=== PATIENT | male | born 2000 | race Caucasian/White ===

== ENCOUNTER 2019-09-19 12:24 | Emergency (ER) | payer OTHER ==
[2019-09-19 12:45] VITALS: BP 143/66
--- NOTE | 2019-09-19 13:08 | ER.PDOC ---
General Chief Complaint: Nausea,Vomiting,Diarrhea Stated Complaint: VOMIT, TRAVELED HOME TO [place] Time seen by MD: 13:08 Source: patient Exam Limitations: no limitations History of Present Illness Initial Comments 19 Y/O MALE TO ED WITH HX NAUSEA AND DIARRHEA X 2 DAYS. ABD PAIN COMES AND GOES, NO FEVER, NO EXPO TO COVID, NO ABD PAIN ON EXAM, NO OTHER COMPLAINTS, NO URI SYMPTOMS. Severity/Quality: mild Abdominal Pain Onset Location: Epigastric Associated Symptoms (diarrhea): mild, watery Prior symptoms/Treatment: Similar symptoms previous Vital Signs First Vital Signs Date Time Temp Pulse Resp B/P (MAP) Pulse Ox O2 Delivery O2 Flow Rate FiO2 09/19/19 12:45 98.9 69 18 98 09/19/19 12:45 Room Air Last Vital Signs Date Time Temp Pulse Resp B/P (MAP) Pulse Ox O2 Delivery O2 Flow Rate FiO2 09/19/19 12:45 98.9 69 18 09/19/19 12:45 98 Room Air Past Medical History Medical History: other Surgical History: appendectomy Family History Significant Family History: no pertinent family hx Social History Smoking: non-smoker Alcohol Use: occassionally Drug Use: none Reviewed Nursing Reviewed: Vital Signs, Abn. Noted, Nursing Assessment Constitutional: no symptoms reported EENTM: no symptoms reported Respiratory: no symptoms reported Cardiovascular: no symptoms reported Gastrointestinal: see HPI, diarrhea, nausea, vomiting Genitourinary: no symptoms reported Musculoskeletal: no symptoms reported Skin: no symptoms reported Psychiatric/Neurological: no symptoms reported Endocrine: no symptoms reported Hematologic/Lymphatic: no symptoms reported Physical Exam General Appearance: No Apparent Distress, WD/WN HEENT: PERRL/EOMI, Normal ENT Inspection, TMs Normal, Pharynx Normal Neck: Non-Tender, Full Range of Motion, Supple, Normal Inspection Respiratory: chest non-tender, lungs clear, normal breath sounds, no respiratory distress, no accessory muscle use Cardiovascular: Normal Peripheral Pulses, Regular Rate, Rhythm, No Edema, No Gallop, No JVD, No Murmur Gastrointestinal: Normal Bowel Sounds, Non Tender, Soft Back: Normal Inspection, No CVA Tenderness, No Vertebral Tenderness Extremities: Normal Range of Motion, Non-Tender, Normal Inspection, No Pedal Edema, No Calf Tenderness, Normal Capillary Refill, Pelvis Stable 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 Results/Orders Results/Orders Orders - ESE GUTIÉRREZ DO Cbc With Auto Diff (09/19/19 13:23) Comprehensive Metabolic Panel (09/19/19 13:23) Lipase (09/19/19 13:23) Urinalysis (09/19/19 13:23) Saline Lock (09/19/19 13:23) Ondansetron Hcl/Pf (Zofran) (09/19/19 13:30) 0.9 % Sodium Chloride (Ns 1000ml) (09/19/19 13:23) 0.9 % Sodium Chloride (Ns 1000ml) (09/19/19 13:38) Ondansetron Hcl/Pf (Zofran) (09/19/19 13:38) Vital Signs Date Time Temp Pulse Resp B/P (MAP) Pulse Ox O2 Delivery O2 Flow Rate FiO2 09/19/19 12:45 98.9 69 18 09/19/19 12:45 98.9 69 18 98 Room Air 09/19/19 12:45 98.9 69 18 98 Administered Medications Medications (Trade) Dose Ordered Sig/Juliette Route PRN Reason Start Time Stop Time Status Last Admin Dose Admin Ondansetron HCl (Zofran) 4 mg STAT PRN IV NAUSEA / VOMITING 09/19/19 13:30 10/19/19 13:29 09/19/19 13:45 4 MG Sodium Chloride 1,000 ml @ 0 mls/hr Q0M STAT IV 09/19/19 13:23 09/19/19 13:26 DC 09/19/19 13:45 1,200 MLS/HR Laboratory Tests Test 09/19/19 13:34 White Blood Count 4.5 10^3/uL (4.5-11.0) Red Blood Count 5.03 10^6/uL (4.50-5.90) Hemoglobin 15.8 g/dL (13.9-16.3) Hematocrit 45.9 % (37.0-53.0) Mean Corpuscular Volume 91.3 fL (78-100) Mean Corpuscular Hemoglobin 31.4 pg (26-34) Mean Corpuscular Hemoglobin Concent 34.4 g/dL (33-36.5) Red Cell Distribution Width 11.8 % (11.5-14.5) Platelet Count 201 10^3/uL (150-400) Mean Platelet Volume 10.5 fL (7.8-11.0) Neutrophils (%) (Auto) 61.4 % (41.0-85.0) Lymphocytes (%) (Auto) 16.2 % (24.0-44.0) L Monocytes (%) (Auto) 21.3 % (5.0-12.0) H Neutrophils # (Auto) 2.8 10^3/uL (1.8-7.7) Lymphocytes # (Auto) 0.73 10^3/uL1 (1.0-4.8) L Monocytes # (Auto) 1.0 10^3/uL (0.3-0.8) H Absolute Immature Granulocyte (auto 0 10^3 u/L (0-2) Absolute Eosinophils (auto) 0.0 10^3/uL (0.0-0.2) Immature Granulocytes % 0.00 % (0.00-0.50) Eosinophils % 0.7 % (0.0-5.0) Basophils % 0.4 % (0.0-0.2) H Basophils # 0.0 10^3/uL (0.0-0.1) Sodium Level 140 mmol/L (132-145) Potassium Level 4.2 mmol/L (3.6-5.2) Chloride Level 103.0 mmol/L (96-109) Carbon Dioxide Level 27.1 mmol/L (20.0-32) Anion Gap 14.1 Blood Urea Nitrogen 19 mg/dL (7-18) H Creatinine 1.23 mg/dL (0.59-1.40) Estimated GFR () 89.9 (>/=60) Est GFR (CKD-EPI)(Non-Afr Macedonian) 74.3 (>/=60) BUN/Creatinine Ratio 15.0 Glucose Level 105 mg/dL (70-110) Calcium Level 9.6 mg/dL (8.4-10.5) Total Bilirubin 0.5 mg/dL (0.2-1.0) Aspartate Amino Transferase (AST) 21 U/L (0-35) Alanine Aminotransferase (ALT) 42 U/L (12-78) Alkaline Phosphatase 67 U/L (50-136) Total Protein 8.5 g/dL (6.4-8.2) H Albumin 4.3 g/dL (3.4-5.0) Globulin 4.2 Lipase 229 U/L (114-286) Progress Progress 1430 --PATIENT STATES HE FEELS BETTER AND WANTS TO GO HOME, DIFF DX IN DETAIL WITH PATIENT. Departure Time of Disposition: 14:26 Disposition: 01 HOME, SELF-CARE Impression: Primary Impression: Vomiting and diarrhea Additional Impression: Dehydration Condition: Stable Patient Instructions: Diarrhea, Nausea and Vomiting Referrals: PCP,UNKNOWN (PCP) PRIMARY CARE PROVIDER Additional Instructions: TO ED IF WORSE OR NO BETTER, DIET DISCUSSED, RX ZOFRAN Duration or Time Spent with Pa: 20 MIN Return to Work/School Can a patient return to work?: No Problem Qualifiers ESE GUTIÉRREZ DO Sep 19, 2019 13:08
[2019-09-19] MEDS ORDERED: NS 1000ML 1,000 ML IV STA (13:23)
[2019-09-19] MEDS ORDERED: ZOFRAN IV PRN (13:30)
[2019-09-19] MEDS ORDERED: NS 1000ML 1,000 ML ONE (13:38)
[2019-09-19] MEDS ORDERED: ZOFRAN ONE (13:38)
[2019-09-19 13:39] LABS: BASOPHIL % 0.4 % (0.0-0.2); EOSINOPHIL % 0.7 % (0.0-5.0); LYMPHOCYTES # 0.73 10^3/uL1 (1.0-4.8); LYMPHOCYTES % 16.2 % (24.0-44.0); MEAN CORP HGB 31.4 pg (26-34); MONOCYTES % 21.3 % (5.0-12.0); NEUTROPHIL # 2.8 10^3/uL (1.8-7.7); NEUTROPHILS % 61.4 % (41.0-85.0); PLATELET COUNT 201 10^3/uL (150-400); RED CELL DISTRIBUTION WIDTH 11.8 % (11.5-14.5)
[2019-09-19 13:54] LABS: CALCIUM 9.6 mg/dL (8.4-10.5); CARBON DIOXIDE 27.1 mmol/L (20.0-32)
[2019-09-19 14:33] LABS: BAND NEUTROPHILS 2 % (2-6); LYMPHOCYTE 21 % (25-36); MONOCYTE 22 % (3-9); SEGMENTED NEUTROPHILS 55 % (31-76)
== END 2019-09-19 14:58 | disposition home or self-care (01) ==
LOC: ER 12:24
DX: E86.0 Dehydration (principal); R11.2 Nausea with vomiting, unspecified; Z79.899 Other long term (current) drug therapy
CPT/HCPCS: 36415; 80053; 83690; 85025; 96361; 96374; 99284; J2405; J7030